=== PATIENT | female | born 1990 | race Caucasian/White ===

== ENCOUNTER → 2022-03-22 | Outpatient (REF) | LOC: M LAB LCGH 10:54 | PROVIDERS: ATTEND Obstetrics & Gynecology Reproductive Endocrinology | DX: N97.9 Female infertility, unspecified (principal) ==

== ENCOUNTER 2023-01-03 20:52 | Outpatient (CLI) | payer BC ==
[~2023-01-03] VITALS: Ht 167.6 cm; Wt 122.7 kg
[2023-01-03 21:25] VITALS: BP 140/89
[2023-01-03 21:49] LABS: HEMATOCRIT 37.6 % (36.0-47.0); HEMOGLOBIN 11.7 g/dl (12.0-15.5); MEAN CORPUSCULAR HEMOGLOBIN 29.5 pg (27.0-33.0); MEAN CORPUSCULAR HGB CONC 31.1 g/dl (32.0-36.5); MEAN CORPUSCULAR VOLUME 94.9 fl (80.0-96.0); PLATELET COUNT, AUTOMATED 197 10^3/uL (150-450); RED BLOOD COUNT 3.96 10^6/uL (4.00-5.40); WHITE BLOOD COUNT 8.8 10^3/uL (4.0-10.0)
[2023-01-03 22:10] LABS: TOTAL PROTEIN,RANDOM URINE 14.3 MG/DL (0.0-14.0)
[2023-01-03 22:12] LABS: URIC ACID 5.4 MG/DL (3.1-7.8)
[2023-01-03 22:14] LABS: LDH LACTATE DEHYDROGENASE 456 U/L (120-246)
[2023-01-03 22:15] LABS: CREATININE,RANDOM URINE 67.6 MG/DL
[2023-01-03 22:23] LABS: ALBUMIN 2.1 G/DL (3.2-5.2); ALKALINE PHOSPHATASE 91 U/L (46-116); ALT/SGPT 64 U/L (7.0-40); AST/SGOT 67 U/L (<34); BILIRUBIN,TOTAL 0.3 MG/DL (0.3-1.2); BLOOD UREA NITROGEN 8 MG/DL (9-23); CALCIUM LEVEL 8.5 MG/DL (8.5-10.1); CARBON DIOXIDE LEVEL 24 MMOL/L (20-31); CHLORIDE LEVEL 109 MMOL/L (98-107); CREATININE FOR GFR 0.64 MG/DL (0.55-1.30); GLOMERULAR FILTRATION RATE > 60.0 (>60); GLUCOSE, FASTING 90 MG/DL (60-100); POTASSIUM SERUM 3.6 MMOL/L (3.5-5.1); SODIUM LEVEL 141 MMOL/L (136-145); TOTAL PROTEIN 5.3 G/DL (5.7-8.2)
[2023-01-03 22:26] VITALS: BP 131/72
[2023-01-03 22:56] VITALS: BP 130/70
[2023-01-03 23:26] VITALS: BP 132/73
[2023-01-04] MEDS ORDERED: LR 1,000 ML IV SCH
[2023-01-04 00:27] VITALS: BP 136/75
[2023-01-04 02:22] VITALS: BP 109/59
[2023-01-04 04:26] VITALS: BP 125/76
[2023-01-04 04:47] LABS: URIC ACID 5.9 MG/DL (3.1-7.8)
[2023-01-04 04:49] LABS: LDH LACTATE DEHYDROGENASE 439 U/L (120-246)
[2023-01-04 04:50] LABS: ALT/SGPT 61 U/L (7.0-40); AST/SGOT 60 U/L (<34); BILIRUBIN,TOTAL 0.3 MG/DL (0.3-1.2); CREATININE FOR GFR 0.63 MG/DL (0.55-1.30); GLOMERULAR FILTRATION RATE > 60.0 (>60)
[2023-01-04] MEDS ORDERED: LEVO137T2 PO (18:19)
[2023-01-04] MEDS ORDERED: PRENTAB9 PO (18:19)
[2023-01-04] MEDS ORDERED: ECOT81TA5 PO (18:19)
[2023-01-04] MEDS ORDERED: FOLI400T13 PO (18:19)
== END 2023-01-04 05:05 | disposition home or self-care (01) ==
LOC: M LDO 20:52
PROVIDERS: ATTEND Obstetrics & Gynecology
DX: O13.3 Gestational [pregnancy-induced] hypertension without significant proteinuria, third trimester (principal); O99.283 Endocrine, nutritional and metabolic diseases complicating pregnancy, third trimester; E03.9 Hypothyroidism, unspecified; O03.9 Complete or unspecified spontaneous abortion without complication; Z3A.33 33 weeks gestation of pregnancy
CPT/HCPCS: 36415; 59025; 76815; 76819; 76820; 80053; 82247; 82565; 82570; 83615; 84156; 84450; 84460; 84550; 85027; 86850; 86900; 86901; G0463

== ENCOUNTER 2023-01-04 17:43 | Outpatient (CLI) | payer BC ==
[~2023-01-04] VITALS: Ht 167.6 cm; Wt 145.4 kg
[2023-01-04 18:14] VITALS: BP 134/89
[2023-01-04] MEDS ORDERED: FOLI400T13 PO (18:19)
[2023-01-04] MEDS ORDERED: LEVO137T2 PO (18:19)
[2023-01-04] MEDS ORDERED: PRENTAB9 PO (18:19)
[2023-01-04] MEDS ORDERED: ECOT81TA5 PO (18:19)
[2023-01-04] MEDS ORDERED: BETAMETHASONE SOLUSPAN 6MG/ML 5ML VIAL IM ONE (18:30)
[2023-01-04] MEDS ORDERED: HOME MED LIST COMPLETE! XX SCH (18:50)
== END 2023-01-04 19:55 | disposition home or self-care (01) ==
LOC: M LDO 17:43
PROVIDERS: ATTEND Advanced Practice Midwife
DX: O13.3 Gestational [pregnancy-induced] hypertension without significant proteinuria, third trimester (principal); Z3A.33 33 weeks gestation of pregnancy
CPT/HCPCS: 76815; 76819; 76820; 96372; G0463; J0702